=== PATIENT | male | born 1950 | race Caucasian/White ===

== ENCOUNTER → 2016-12-03 | Outpatient (CLI) | payer OTHER, MEDICARE ==
[~2016-12-03] MED LIST: GLIP10TA13 PO; LISI-167 PO; METF10002 PO; TAMS-11 PO
== END | disposition home or self-care (01) ==
LOC: CFH 09:46
PROVIDERS: ATTEND Family Medicine
DX: M48.07 Spinal stenosis, lumbosacral region (principal); M43.17 Spondylolisthesis, lumbosacral region; M47.897 Other spondylosis, lumbosacral region; M54.16 Radiculopathy, lumbar region
CPT/HCPCS: 72148

== ENCOUNTER 2019-09-30 20:40 | Observation (INO) | payer MEDICARE, OTHER ==
[~2019-09-30] VITALS: Ht 162.6 cm; Wt 84.5 kg
[2019-09-30] MEDS ORDERED: ASPIRIN 81 MG TABLET CHEW PO ONE (21:30)
[2019-09-30 21:58] LABS: BASOPHILS # (AUTO) 0.03 x10^3/uL (0-0.1); BASOPHILS % (AUTO) 0 % (0-1); EOSINOPHILS # (AUTO) 0.63 x10^3/uL (0-0.4); EOSINOPHILS % (AUTO) 5 % (1-7); LYMPHOCYTES # (AUTO) 1.11 x10^3/uL (1-3.4); LYMPHOCYTES % (AUTO) 9 % (22-44); MD NO; MEAN CORPUSCULAR HEMOGLOBIN 31.9 pg (27.5-34.5); MEAN CORPUSCULAR VOLUME 93.9 fL (81-97); MEAN PLATELET VOLUME 9.3 fL (7.4-10.4); MONOCYTES # (AUTO) 1.03 x10^3/uL (0.2-0.8); MONOCYTES % (AUTO) 9 % (2-9); NEUTROPHILS # (AUTO) 9.32 x10^3/uL (1.8-6.8); NEUTROPHILS % (AUTO) 77 % (42-75); PLATELET COUNT 149 x10^3/uL (130-400); RED BLOOD COUNT 5.45 x10^6/uL (4.38-5.82); RED CELL DISTRIBUTION WIDTH 14.6 % (9.4-14.8)
[2019-09-30 22:11] LABS: ALBUMIN 3.6 g/dL (3.4-5.0); ANION GAP 10 mmol/L (5-15); CALCIUM 9.5 mg/dL (8.5-10.1); CHLORIDE 105 mmol/L (98-107)
--- NOTE | 2019-09-30 22:12 | NUR ---
Late entry: Patient BIB [facility] c/o substernal chest pressure since this afternoon. Patient has no cardiac hx. Per EMS, patient self admin 324 mg ASA and EMS admin 1 Nitro tab. Patient states his CP decreased afterward but it is still present. Patient denies nausea or vomiting. States he was dizzy when the pain first came on. Patient is in NAD. Respirations even and unlabored. No diaphoresis noted.
[2019-09-30 22:15] LABS: CREATININE 1.36 mg/dL (0.7-1.3); TROPONIN I < 0.015 ng/mL (0.000-0.045)
--- NOTE | 2019-09-30 22:17 | NUR ---
Unable to obtain UA at this time. Patient will try later.
[2019-09-30] MEDS ORDERED: SODIUM CHLORIDE 0.9% 1,000 ML IV SCH (22:45)
[2019-09-30] MEDS ORDERED: ONDANSETRON 2MG/ML, 2ML IVPush PRN (23:00)
[2019-09-30] MEDS ORDERED: LABETALOL 5MG/ML, 20ML IVPush PRN (23:00)
[2019-09-30] MEDS ORDERED: BISACODYL 10 MG SUPP PR PRN (23:00)
[2019-09-30] MEDS ORDERED: ACETAMINOPHEN 325 MG TABLET PO PRN (23:00)
[2019-09-30] MEDS ORDERED: POLYETHYLENE GLYCOL 17 GM PACKET PO PRN (23:00)
[2019-09-30] MEDS ORDERED: ONDANSETRON ODT 4 MG PO PRN (23:00)
[2019-09-30] MEDS ORDERED: ENALAPRILAT 1.25 MG/ML, 2ML IVPush PRN (23:00)
[2019-09-30] MEDS ORDERED: NITROGLYCERIN 0.4 MG BOTTLE (25 TABS) SL PRN (23:00)
[2019-09-30] MEDS ORDERED: INSULIN REGULAR 100 UNITS/ML, 3ML VIAL IVPush ONE (23:00)
[2019-09-30] MEDS ORDERED: ENOXAPARIN 40 MG/0.4 ML SQ SCH (23:00)
[2019-09-30 23:10] VITALS: BP 151/93
[2019-09-30 23:23] LABS: MICROSCOPIC INDICATED
[2019-09-30 23:33] LABS: CULTURE INDICATED? NO
[2019-10-01 03:13] VITALS: BP 160/96
[2019-10-01 05:49] LABS: TROPONIN I < 0.015 ng/mL (0.000-0.045)
[2019-10-01 05:51] LABS: ANION GAP 13 mmol/L (5-15); CALCIUM 10.4 mg/dL (8.5-10.1); CHLORIDE 108 mmol/L (98-107); CREATININE 1.24 mg/dL (0.7-1.3)
[2019-10-01] MEDS ORDERED: ASPIRIN 325 MG TABLET EC PO SCH (06:00)
[2019-10-01] MEDS ORDERED: REGADENOSON 0.4 MG/5 ML SYRINGE ONE (08:34)
[2019-10-01] MEDS ORDERED: LISINOPRIL 10 MG TABLET ONE ×2 (08:42→09:02)
[2019-10-01 08:48] VITALS: BP 157/89
[2019-10-01] MEDS ORDERED: metFORMIN 500 MG TABLET PO SCH (09:00)
[2019-10-01] MEDS ORDERED: LISINOPRIL 10 MG TABLET PO SCH (09:00)
[2019-10-01] MEDS ORDERED: SENNA/DOCUSATE TABLET PO SCH (09:00)
[2019-10-01] MEDS ORDERED: INSULIN GLARGINE 100 UNITS/ML, PEN SQ-INSULIN SCH ×2 (09:00→21:00)
[2019-10-01] MEDS ORDERED: CHLORTHALIDONE 25 MG TABLET PO SCH (09:00)
[2019-10-01] MEDS ORDERED: LISINOPRIL 20 MG TABLET PO SCH (09:00)
[2019-10-01] MEDS ORDERED: CHLORTHALIDONE 25 MG TABLET ONE (09:02)
[2019-10-01] MEDS: INSULIN LISPRO 100 UNITS/ML, PEN SQ-INSULIN SCH ×5 (09:21→16:37)
[2019-10-01 13:35] VITALS: BP 153/97
[2019-10-01] MEDS ORDERED: OMNIPAQUE 350 MG/ML, 100ML BOTTLE ONE (17:36)
[2019-10-01] MEDS ORDERED: TAMSULOSIN 0.4 MG CAP.ER.24H PO SCH (21:00)
[2019-10-01] MEDS ORDERED: SODIUM CHLORIDE 0.9% 1,000 ML IV SCH (22:45)
== END 2019-10-01 18:41 | disposition left against medical advice (07) ==
LOC: ED 22:21 → INTOOBSV 22:26 → EDIP 22:26 → 5SO 23:04
PROVIDERS: ADMIT Internal Medicine; ATTEND Internal Medicine
DX: R07.89 Other chest pain (principal); N17.9 Acute kidney failure, unspecified; E87.1 Hypo-osmolality and hyponatremia; R00.0 Tachycardia, unspecified; E11.9 Type 2 diabetes mellitus without complications; D72.829 Elevated white blood cell count, unspecified; I37.1 Nonrheumatic pulmonary valve insufficiency; M48.9 Spondylopathy, unspecified; I10 Essential (primary) hypertension; E03.9 Hypothyroidism, unspecified; E78.5 Hyperlipidemia, unspecified; N40.0 Benign prostatic hyperplasia without lower urinary tract symptoms; N32.89 Other specified disorders of bladder; R79.89 Other specified abnormal findings of blood chemistry; Z87.442 Personal history of urinary calculi; Z86.73 Personal history of transient ischemic attack (TIA), and cerebral infarction without residual deficits; Z79.4 Long term (current) use of insulin; Z79.899 Other long term (current) drug therapy
CPT/HCPCS: 36415; 71045; 71275; 78452; 80048; 81001; 82040; 82330; 82962; 83036; 84484; 85025; 85379; 93005; 93017; 96372; 99285; A9502; C9898; G0378; J1650; J1815; J2785; J7030; Q9967